=== PATIENT | male | born 1955 | race Caucasian/White ===

== ENCOUNTER 2021-05-20 05:28 | Day surgery (SDC) | payer MEDICARE, BC ==
[2021-05-08 15:55] LABS: BASOPHILS # (AUTO) 0.1 X10'3 (0-0.2); BASOPHILS % (AUTO) 1.2 % (0-1); EOSINOPHILS # (AUTO) 0.2 X10'3 (0-0.9); EOSINOPHILS % (AUTO) 3.1 % (0-6); LYMPHOCYTES # (AUTO) 1.9 X10'3 (1.1-4.8); LYMPHOCYTES % (AUTO) 38.7 % (21-51); MEAN CORPUSCULAR HEMOGLOBIN 30.8 PG (27.0-31.0); MEAN CORPUSCULAR HGB CONC 33.9 g/dL (33.0-36.5); MEAN CORPUSCULAR VOLUME 90.8 FL (78-98); MEAN PLATELET VOLUME 7.8 FL (7.4-10.4); MONOCYTES # (AUTO) 0.6 X10'3 (0-0.9); MONOCYTES % (AUTO) 11.4 % (2-12); NEUTROPHILS # (AUTO) 2.2 X10'3 (1.8-7.7); NEUTROPHILS % (AUTO) 45.6 % (42-75); PRE OP HEMOGLOBIN 14.6 g/dL (14.0-17.9); PRE OP PLATELET COUNT 263 X10'3 (140-440); RED BLOOD COUNT 4.73 X10'6 (4.70-6.10); RED CELL DISTRIBUTION WIDTH 13.9 % (11.5-14.5)
[2021-05-08 16:10] LABS: ALKALINE PHOSPHATASE 132 IU/L (46-116); BLOOD UREA NITROGEN 13 MG/DL (7-18); BUN/CREATININE RATIO 10.9 (5.4-32.0); CALCIUM 9.1 MG/DL (8.5-10.1); CHLORIDE 105 MMOL/L (99-107); CREATININE 1.19 MG/DL (0.60-1.10); PRE OP ALT 28 U/L (30-65); PRE OP ANION GAP 10 (8-16); PRE OP AST 18 U/L (10-37); PRE OP BILIRUB, TOTAL 0.4 MG/DL (0.0-1.0); PRE OP POTASSIUM 4.2 MMOL/L (3.4-5.1); PRE OP SODIUM 144 MMOL/L (135-145); TOTAL CARBON DIOXIDE 28.9 MMOL/L (24-32); TOTAL PROTEIN 7.9 G/DL (6.4-8.2); eGFR 61 ML/MIN
[2021-05-08 16:12] LABS: PRE OP GLUCOSE 98 MG/DL (70-104)
[2021-05-20] VITALS (17 sets, daily range): BP systolic 109–133; BP diastolic 56–82
[~2021-05-20] VITALS: Ht 177.8 cm; Wt 96.4 kg
[~2021-05-20 05:28] MED LIST: ESCI20TA29 PO; FAMO20TA8 PO; GEMF600T89 PO; LIPA1CAP18 PO; POTA-197 PO; SIMV10TA98 PO; ringers solution, lacted 1,000 ML IV SCH
[2021-05-20] MEDS ORDERED: famotidine 20mg tablet PO ONE (05:30)
[2021-05-20] MEDS ORDERED: cefazolin/dext.iso 2gm/50ml IV ONE (05:30)
[2021-05-20] MEDS ORDERED: BUPIVAcaine 0.5% inj/PF 30 ML ONE (06:46)
[2021-05-20] MEDS ORDERED: FENTANYL CITRATE/PF 50 MCG/1 ML VIAL ONE (07:16)
[2021-05-20] MEDS ORDERED: midazolam 1 mg/ML 2ml injection ONE (07:16)
[2021-05-20] MEDS ORDERED: ringers solution, lacted 1,000 ML IV SCH (08:00)
[2021-05-20] MEDS ORDERED: ROPIVAcaine 0.2%/PF PUMP/bolus 545 ML INTERSCALE SCH (08:00)
[2021-05-20] MEDS ORDERED: morphine 4 MG/ML inj SYRINge IV PRN (08:00)
[2021-05-20] MEDS ORDERED: morphine 2 MG/ML inj. syringe IV PRN (08:00)
[2021-05-20] MEDS ORDERED: meperidine/PF 25mg/ml syringe IV PRN ×3 (08:00)
[2021-05-20] MEDS ORDERED: ondansetron/PF 4mg/2ml inj IV PRN (08:00)
[2021-05-20] MEDS ORDERED: proCHLORperazine 10 MG/2 ml inj IV PRN (08:00)
[2021-05-20] MEDS ORDERED: ROPIVAcaine 0.2% (10 MG/5 ML) BOLUS INJECTION INTERSCALE PRN (08:00)
[2021-05-20] MEDS ORDERED: BUPIVAcaine 0.5% inj/PF 30 ml vial IJ ONE (08:34)
--- NOTE | 2021-05-20 09:27 | NUR ---
Received from OR via [facility], accompanied by Anesthesiologist DR GOODSON and report given by Anesthesiolgist. PT PRESENTS WITH PIV 18G LEFT HAND, RIGHT SHOULDER WRAP WITH POWDER PACK, ON-Q READY, VSS.
[2021-05-20] MEDS ORDERED: HYDROcodone/acetaminophen 10/325mg tab PO PRN (09:30)
[2021-05-20] MEDS ORDERED: ROPIVAcaine 0.5% (5mg/ml) 30ml vial ONE (10:12)
[2021-05-20] MEDS ORDERED: propofol inj 20 ML IV ONE (10:12)
[2021-05-20] MEDS ORDERED: ondansetron/PF 4mg/2ml inj ONE (10:12)
[2021-05-20] MEDS ORDERED: dexamethasone sod phosphate 4mg/ml inj. ONE (10:12)
[2021-05-20] MEDS ORDERED: neostigmine methylsulfate 1 MG/ML 10ml vial ONE (10:12)
[2021-05-20] MEDS ORDERED: rocuronium 10mg/ml inj IV ONE (10:12)
[2021-05-20] MEDS ORDERED: glycopyrrolate 0.2mg/ml inj ONE (10:12)
--- NOTE | 2021-05-20 11:47 | NUR ---
PATIENT DISCHARGED FROM PACU IN STABLE CONDITION AFTER WRITTEN AND VERBAL DISCHARGE INSTRUCTIONS GIVEN. PT AND ADVISED FOR PT TO USE C-PAP AT HOME FOR 24 HOURS AFTER SURGERY. PATIENT GAVE VERBAL UNDERSTANDING OF INSTRUCTIONS GIVEN. PATIENT LEFT FACILITY VIA WHEELCHAIR WITH RN. Addendum: 05/20/21 at 1202 by Monie Mendez RN, RN Amended: Links added.
== END 2021-05-20 11:47 | disposition home or self-care (01) ==
LOC: PAS 05:28
PROVIDERS: ATTEND Orthopaedic Surgery
DX: S46.011A Strain of muscle(s) and tendon(s) of the rotator cuff of right shoulder, initial encounter (principal); S43.431A Superior glenoid labrum lesion of right shoulder, initial encounter; S42.291A Other displaced fracture of upper end of right humerus, initial encounter for closed fracture; M19.011 Primary osteoarthritis, right shoulder; M75.51 Bursitis of right shoulder; F32.A Depression, unspecified; K21.9 Gastro-esophageal reflux disease without esophagitis; G47.33 Obstructive sleep apnea (adult) (pediatric); G89.18 Other acute postprocedural pain; Z79.899 Other long term (current) drug therapy; Z72.89 Other problems related to lifestyle; Z90.49 Acquired absence of other specified parts of digestive tract; Z98.890 Other specified postprocedural states; Z20.822 Contact with and (suspected) exposure to COVID-19; X58.XXXA Exposure to other specified factors, initial encounter; Y93.89 Activity, other specified; Y92.89 Other specified places as the place of occurrence of the external cause; Y99.8 Other external cause status
CPT/HCPCS: 29824; 29826; 29828; 36415; 64416; 76942; 80053; 82948; 85025; C1713; J1100; J2250; J2405; J2704; J2710; J2795; J3010; J3490; J7120; S0020; U0003; U0005; Z7506; Z7508; Z7512; A4565; A4618; A6449; A7000